=== PATIENT | male | born 1965 | race African-American/Black ===

== ENCOUNTER 2023-04-09 18:40 | Emergency (ER) | payer MEDICAID, SELFPAY ==
[2023-04-09 18:41] VITALS: BP 156/92; PULSE 94; RESP 16; TEMP 36.4; O2SAT 98; BMI 29.0
--- NOTE | 2023-04-09 18:46 | ED.RN ---
PT STATES HE IS STRANDED HERE BECAUSE HE MISSED HIS [employer] BUS TO [place]. STATES HE HAD OR HAS A WARRANT, UNSURE OF WHICH, AND WAS SUPPOSED TO GO TO [place] BUT DOESN'T HAVE ANYWHERE TO GO. EXPLAINED THAT HE COULD BE SEEN BUT ONCE DISCHARGED HE WOULD NOT BE ABLE TO HANG OUT AT THE HOSPITAL.
--- NOTE | 2023-04-09 22:47 | EX.ED.UPPERE ---
HPI History of Present Illness Chief Complaint: Upper Extremity Injury Narrative Narrative: 57-year-old male presents with concern for right index finger. He had a laceration there couple of months ago and had stitches placed which were subcutaneous. This was at [facility]. Patient has not had any new trauma. Patient states that he still has continued discomfort when he bumps it. No redness, swelling. No numbness or tingling. He has not followed up with anybody for reevaluation. PFSH PFSH Allergy/AdvReac Type Severity Reaction Status Date / Time acetaminophen [From Vicodin] Allergy Mild Hives Verified 04/09/23 18:41 hydrocodone [From Vicodin] Allergy Mild Hives Verified 04/09/23 18:41 Social History Smoking Status: Current every day smoker tobacco type: cigarettes ROS ROS ED Constitutional Constitutional ED: Denies chills, fever(s) or sweats Eyes Eyes: Denies blurry vision or change in vision ENT ENT ED: Denies ear pain or sore throat Cardiovascular Cardiovascular: Denies chest pain, palpitations or racing heartbeat Respiratory/Chest Respiratory/Chest: Denies cough, dyspnea or sputum Gastrointestinal Gastrointestinal: Denies abdominal pain, constipation, diarrhea, nausea or vomiting Genitourinary Genitourinary ED: Denies dysuria, hematuria or urinary frequency Musculoskeletal Musculoskeletal: Denies arthralgias, myalgias or neck pain Integumentary Reports other Details: Pain in right index finger ; Denies abscess, Abrasions or rash Neurologic Neurologic: Denies headache(s), paresthesias or weakness Psychiatric Psychiatric: Denies anxiety, depression, suicidal ideation or suicidal thoughts Endocrine Endocrinology: Denies polydipsia or polyuria EXAM Physical Exam Const Vital Signs: 04/09/23 18:41 Temperature 97.6 F L Temperature Source Temporal Pulse Rate 94 Respiratory Rate 16 Blood Pressure 156/92 H Blood Pressure Mean 113 Pulse Ox 98 Oxygen Delivery Method Room Air Positive well nourished General Appearance ED: NAD HEENT Reports moist mucous membranes Resp normal respiratory effort Cardio regular rate and regular rhythm Extremity Extremity Narrative: Right index finger has a scar on the dorsal aspect between the DIP and PIP. Is well-healed. There is no evidence of abscess or infection. Patient able to flex and extend his finger without any difficulty. No bony tenderness. Neurovascular intact brisk cap refill to all 5 fingers Neuro oriented x3 and CN's II-XII intact bilaterally Sensorium / Orientation: alert Psych mental status grossly normal Mood & Affect: Negative for depressed or anxious MDM MDM MDM Narrative Medical decision making narrative: Patient has a healing wound on the right index finger which does not require any intervention. It does not look infected. There is no bony tenderness. He has full range of motion is neurovascular intact. I recommended to him that he continue to treat this and this would get better over time. He is to keep this clean and dry. Monitor for signs of infection. I gave him follow-up with plastics. Return precautions discussed. Impression: 1. Wound check Lab Data Attestation: I reviewed the patient's lab results. Discharge Plan Triage Chief Complaint: Upper Extremity Injury ED Provider: Jeremy Gayle Dx/Rx/DC Orders Instructions: ED Post Op Wound Check, General Primary Care Provider: Care Physician,No Primary Referrals: Seb Dye MD [Med Staff - Active Staff] - 3-5 Days Care Physician,No Primary [Primary Care Provider] - Disposition Disposition: Home, Self Care Discharge Date/Time: 04/09/23 19:30
== END 2023-04-09 19:30 | disposition home or self-care (01) ==
PROVIDERS: Emergency Provider Student in an Organized Health Care Education/Training Program; Visit Provider Student in an Organized Health Care Education/Training Program
DX: S61.200A Unspecified open wound of right index finger without damage to nail, initial encounter (principal); F17.210 Nicotine dependence, cigarettes, uncomplicated; X58.XXXA Exposure to other specified factors, initial encounter
CPT/HCPCS: 99282